=== PATIENT | female | born 1990 | race Two or more races ===

== ENCOUNTER 2024-04-25 05:00 | Inpatient (IN) | payer OTHER ==
[2024-04-18 10:33] VITALS: BP 125/77
[~2024-04-25] VITALS: Ht 162.6 cm; Wt 117.0 kg
[~2024-04-25 05:00] MED LIST: GABAPENTIN100 M2 PO; METFORMIN HCL500 M3 PO; SYNTHROID100 MCG PO
[2024-04-25] MEDS ORDERED: CEFAZOLIN SODIUM 1,000 MG VIAL ONE (07:55)
[2024-04-25] MEDS ORDERED: DEXAMETHASONE SODIUM PHOSPHATE 4 MG/ML VIAL ONE (11:15)
[2024-04-25] MEDS ORDERED: Calcium Carbonate 1 TAB TABLET PO SCH (17:09)
[2024-04-25] MEDS ORDERED: CYCLOBENZAPRINE HCL 5 MG TABLET PO SCH (17:13)
[2024-04-25] MEDS ORDERED: TRAMADOL HCL 50 MG TABLET PO SCH (17:14)
[2024-04-25] MEDS ORDERED: ACETAMINOPHEN 500 MG GEL..CAP PO SCH (17:14)
[2024-04-25] MEDS ORDERED: DEXTROSE 50 % IN WATER 0.5 G/ML DISP.SYRIN IV PRN (17:15)
[2024-04-25] MEDS ORDERED: ONDANSETRON HCL 2 MG/ML VIAL IV PRN (17:15)
[2024-04-25] MEDS ORDERED: INSULIN LISPRO 1,000 UNIT/10 ML UNITS SUBCUTANEO PRN (17:15)
[2024-04-25] MEDS ORDERED: ENALAPRILAT DIHYDRATE 1.25 MG/ML VIAL IV PRN (17:15)
[2024-04-25] MEDS ORDERED: DIPHENHYDRAMINE HCL 50 MG/ML VIAL 1ML IM ONE (17:50)
[2024-04-25] MEDS ORDERED: DIPHENHYDRAMINE HCL 50 MG/ML VIAL 1ML ONE (17:52)
[2024-04-25] MEDS ORDERED: ALBUTEROL SULFATE 3 ML/2.5 MG AMPUL.NEB IH STA (18:03)
[2024-04-25] MEDS ORDERED: ALBUTEROL SULFATE 3 ML/2.5 MG AMPUL.NEB IH SCH (18:05)
[2024-04-25] MEDS ORDERED: ALBUTEROL SULFATE 3 ML/2.5 MG AMPUL.NEB IH ONE (18:18)
[2024-04-25 20:45] VITALS: BP 122/67; O2SAT 97
[2024-04-25] MEDS ORDERED: PANTOPRAZOLE SODIUM 40 MG/VIAL VIAL IV PUSH SCH (21:00)
[2024-04-26] VITALS: BP 115/74; O2SAT 95
[2024-04-26] MEDS ORDERED: LEVOTHYROXINE SODIUM 175 MCG TABLET PO SCH (06:00)
[2024-04-26 08:16] VITALS: BP 127/82; O2SAT 94
[2024-04-26] MEDS ORDERED: CALCIUM CARBONATE/VITAMIN D3 1 TAB TABLET PO NR (09:45)
== END 2024-04-26 12:11 | disposition home or self-care (01) | DRG 626 ==
LOC: CIR.AMB 05:00 → SURG 18:23 → SURH 18:58
PROVIDERS: ADMIT Surgery; ATTEND Surgery
PROC: 0GTH0ZZ Resection of Right Thyroid Gland Lobe, Open Approach (ICD-10-PCS; 2024-04-25)
PROC: 0GTG0ZZ Resection of Left Thyroid Gland Lobe, Open Approach (ICD-10-PCS; 2024-04-25)
PROC: 07B20ZZ Excision of Left Neck Lymphatic, Open Approach (ICD-10-PCS; 2024-04-25)
PROC: 07B10ZZ Excision of Right Neck Lymphatic, Open Approach (ICD-10-PCS; 2024-04-25)
PROC: 0GTJ0ZZ Resection of Thyroid Gland Isthmus, Open Approach (ICD-10-PCS; principal; 2024-04-25 09:15)
DX: C73 Malignant neoplasm of thyroid gland (principal); C77.0 Secondary and unspecified malignant neoplasm of lymph nodes of head, face and neck; Z20.822 Contact with and (suspected) exposure to COVID-19